=== PATIENT | female | born 1975 | race Two or more races ===

== ENCOUNTER 2024-02-20 09:46 | Emergency (ER) | payer OTHER ==
[~2024-02-20] VITALS: Ht 167.6 cm; Wt 104.3 kg
[2024-02-20] MEDS ORDERED: predniSONE 20 MG TABLET ONE (10:34)
[2024-02-20] MEDS: predniSONE 20 MG TABLET PO ONE (10:37)
[2024-02-20] MEDS ORDERED: ALBUTEROL FS 2.5 MG/3 ML VIAL.NEB ONE (10:53)
[2024-02-20 10:57] VITALS: O2SAT 96
[2024-02-20] MEDS: ALBUTEROL FS 2.5 MG/3 ML VIAL.NEB NEB ONE (10:57)
[2024-02-20 11:10] VITALS: O2SAT 98
[2024-02-20] MEDS ORDERED: ALBU18HF2 INH (11:36)
[2024-02-20] MEDS ORDERED: PRED50TA PO (11:36)
[2024-02-20 12:16] VITALS: BP 162/99; TEMP 98.6; O2SAT 98
== END 2024-02-20 12:16 | disposition home or self-care (01) ==
LOC: ER 09:53
DX: J45.909 Unspecified asthma, uncomplicated (principal); I10 Essential (primary) hypertension; Z79.52 Long term (current) use of systemic steroids; Z88.5 Allergy status to narcotic agent
CPT/HCPCS: 99285; 71045; 94799; 94640; J7512